=== PATIENT | female | born 1970 | race African-American/Black ===

== ENCOUNTER 2020-01-11 08:21 | Emergency (ER) | payer SELFPAY ==
[2020-01-11 08:59] LABS: Mean Corpuscular HGB CONC 29.3 g/dL (32.0-36.0); Mean Corpuscular Volume 61.5 fL (78.0-98.0); Red Blood Cell (RBC) Count 4.46 mill/uL (4.20-5.40)
[2020-01-11 09:12] LABS: Anion Gap 13 mmol/L (10-20); BUN (Urea Nitrogen) 6 mg/dL (7.0-18.7); Calc. Creatinine Clearance 0 mL/min (70-130); Carbon Dioxide 23 mmol/L (22-29); Chloride 103 mmol/L (98-107); Estimated GFR-MDRD 85; Potassium 3.3 mmol/L (3.5-5.1); Sodium 136 mmol/L (136-145)
[2020-01-11 09:13] LABS: ALT (SGPT) 8 U/L (8-55); AST (SGOT) 17 U/L (5-34); Albumin 3.6 g/dL (3.5-5.0); Alkaline Phosphatase 64 U/L (40-110); Bilirubin, Total 0.5 mg/dL (0.2-1.2); Calcium 8.6 mg/dL (7.8-10.44); Globulin 3.6 g/dL (2.4-3.5); Glucose 103 mg/dL (70-105); Lipase 10 U/L (8-78); Protein, Total 7.2 g/dL (6.0-8.3)
[2020-01-11 09:40] LABS: #Eosinphils 0.1 thou/uL (0.0-0.7); #Monocytes 0.6 thou/uL (0.11-0.59); #Neutrophils 3.8 thou/uL (1.40-6.50); %Basophils 0.6 % (0.0-1.0); %Eosinophils 1.2 % (0.0-10.0); %Lymphocytes 30.8 % (21.0-51.0); %Monocytes 8.8 % (0.0-10.0); %Neutrophils 58.6 % (42.0-75.0); Anisocytosis MODERATE=16-30 cells (100X) (0-5/hpf); Hypochromia SLIGHT = 6-15 cells (100X) (0-5/hpf); Large Platelets SLIGHT; MDiff Complete? YES; Mean Platelet Volume 6.4 fL (7.4-10.4); Ovalocytes SLIGHT = 2-5 cells (100X) (0-1/hpf); Platelet Count 288 thou/uL (130-400); Platelet Morphology Comment Appears Adequate; RBC Distribution Width 21.1 % (11.5-14.5); White Blood Cell (WBC) Count 6.5 thou/uL (4.8-10.8)
[2020-01-11 10:55] LABS: Bacteria/HPF 4+ HPF (None Seen); Bilirubin Negative (Negative); Blood, Urine 2+ (Negative); Clarity Extra Turbid (Clear); Glucose, Urine (Dipstick) Normal (Negative); Ketone, Urine Negative (Negative); Leukocyte 500 Leu/uL (Negative); Nitrite Negative (Negative); Protein, Urine (Dipstick) 300 mg/dL (Neg-Trace); RBC/HPF Greater than 50 HPF (0-3); Specific Gravity, Urine 1.006 (1.002-1.036); Squamous Epithelial 0-3 HPF (0-3); Urobilinogen Normal mg/dL (Less than 2); WBC/HPF Greater than 50 HPF (0-3)
[2020-01-11] MEDS ORDERED: Acetaminophen 500 MG TAB ONE (11:44)
[2020-01-11] MEDS ORDERED: Azithromycin 250 MG TAB ONE (11:44)
[2020-01-11] MEDS ORDERED: cefTRIAXone\\ROCEPHIN 1 GM VIAL ONE (11:44)
[2020-01-11] MEDS ORDERED: Lidocaine 1% PF 5 ML VIAL ONE (11:44)
[2020-01-11 11:49] LABS: BHCG - Serum Negative (NEGATIVE); Pregs Control Background? CLEAR/WHITE (CLR/WHITE); Pregs Control Bar Appear? YES (CONTROL BAR)
[2020-01-12 17:04] LABS: Chlamydia by PCR Not Detected (NotDetected); GC by PCR Not Detected (NotDetected)
== END 2020-01-11 12:08 | disposition home or self-care (01) ==
LOC: ERS 08:21
DX: D64.9 Anemia, unspecified (principal); N12 Tubulo-interstitial nephritis, not specified as acute or chronic; J45.909 Unspecified asthma, uncomplicated; J44.9 Chronic obstructive pulmonary disease, unspecified; F41.9 Anxiety disorder, unspecified; F32.9 Major depressive disorder, single episode, unspecified; F43.10 Post-traumatic stress disorder, unspecified; Z79.899 Other long term (current) drug therapy
CPT/HCPCS: 36415; 80053; 81003; 81015; 83605; 83690; 84703; 85025; 87077; 87086; 87480; 87491; 87510; 87591; 87660; 96374; J0696

== ENCOUNTER 2020-02-05 21:30 | Emergency (ER) | payer SELFPAY ==
--- NOTE | 2020-02-05 22:58 | CT ---
CT HEAD WITHOUT CONTRAST: Date: 02/05/2020 INDICATION: Trauma. FINDINGS: Ventricles have normal size and position. No evidence of intracranial hemorrhage. No edema, mass, inf arct, or other acute process. Sinuses appear clear. No evidence of skull fracture. IMPRESSION: No acute findings. POS: AGW
--- NOTE | 2020-02-05 23:00 | CT ---
CT CERVICAL SPINE: Date: 02/05/2020 INDICATION: Trauma. FINDINGS: Cervical vertebra maintain height and alignment. There are moderate degenerative changes at the C5-6 and C6-7 levels. Loss of disc space noted at these levels with anterior osteophytes and posterior spo ndylosis. There is no evidence of cervical spine fracture. IMPRESSION: 1. No evidence of cervical spine fracture. 2. Degenerative changes at C5-6 and C6-7 as described. POS: MICHELE
[2020-02-05] MEDS ORDERED: Fentanyl 100 MCG/2 ML VIAL ONE (23:25)
== END 2020-02-05 23:54 | disposition home or self-care (01) ==
LOC: ERS 21:30
DX: S09.90XA Unspecified injury of head, initial encounter (principal); S16.1XXA Strain of muscle, fascia and tendon at neck level, initial encounter; J44.9 Chronic obstructive pulmonary disease, unspecified; F41.9 Anxiety disorder, unspecified; F32.9 Major depressive disorder, single episode, unspecified; F43.10 Post-traumatic stress disorder, unspecified; F41.0 Panic disorder [episodic paroxysmal anxiety]; W10.9XXA Fall (on) (from) unspecified stairs and steps, initial encounter
CPT/HCPCS: 70450; 72125; 96372; J3010

== ENCOUNTER 2020-02-22 05:53 | Emergency (ER) | payer SELFPAY ==
[2020-02-22] MEDS ORDERED: diphenhydrAMINE 25 MG CAP ONE (06:05)
[2020-02-22] MEDS ORDERED: predniSONE 20 MG TAB ONE (06:05)
== END 2020-02-22 06:57 | disposition home or self-care (01) ==
LOC: ERS 05:53
DX: T78.40XA Allergy, unspecified, initial encounter (principal); J44.9 Chronic obstructive pulmonary disease, unspecified; F41.9 Anxiety disorder, unspecified; F32.9 Major depressive disorder, single episode, unspecified; F43.10 Post-traumatic stress disorder, unspecified
CPT/HCPCS: 99283; J7512; Q0163

== ENCOUNTER 2020-02-28 12:58 | Emergency (ER) | payer SELFPAY ==
[2020-02-28 15:35] LABS: #Eosinphils 0.1 thou/uL (0.0-0.7); #Lymphocytes 2.4 thou/uL (1.20-3.40); #Monocytes 0.6 thou/uL (0.11-0.59); #Neutrophils 2.1 thou/uL (1.40-6.50); %Basophils 0.2 % (0.0-1.0); %Eosinophils 2.7 % (0.0-10.0); %Lymphocytes 45.9 % (21.0-51.0); %Monocytes 10.8 % (0.0-10.0); %Neutrophils 40.3 % (42.0-75.0); ALT (SGPT) 7 U/L (8-55); AST (SGOT) 16 U/L (5-34); Albumin 3.9 g/dL (3.5-5.0); Alkaline Phosphatase 80 U/L (40-110); Anion Gap 15 mmol/L (10-20); BUN (Urea Nitrogen) 9 mg/dL (7.0-18.7); Bilirubin, Total 0.5 mg/dL (0.2-1.2); Calc. Creatinine Clearance 0 mL/min (70-130); Carbon Dioxide 22 mmol/L (22-29); Chloride 103 mmol/L (98-107); Estimated GFR-MDRD 84; Glucose 87 mg/dL (70-105); Hemoglobin 7.3 g/dL (12.0-16.0); Mean Corpuscular HGB CONC 29.6 g/dL (32.0-36.0); Mean Corpuscular Hemoglobin 17.3 pg (27.0-31.0); Mean Corpuscular Volume 58.5 fL (78.0-98.0); Platelet Count 295 thou/uL (130-400); Potassium 3.6 mmol/L (3.5-5.1); Protein, Total 7.9 g/dL (6.0-8.3); RBC Distribution Width 19.6 % (11.5-14.5); Red Blood Cell (RBC) Count 4.21 mill/uL (4.20-5.40); Sodium 136 mmol/L (136-145); White Blood Cell (WBC) Count 5.3 thou/uL (4.8-10.8)
[2020-02-28] MEDS ORDERED: Acetaminophen 500 MG TAB ONE (15:35)
[2020-02-28] MEDS ORDERED: Furosemide 40 MG TAB ONE (15:35)
[2020-02-28 15:57] LABS: Anisocytosis SLIGHT = 6-15 cells (100X) (0-5/hpf); Elliptocytes SLIGHT = 2-5 cells (100X) (0-1/hpf); Hypochromia MODERATE=16-30 cells (100X) (0-5/hpf); MDiff Complete? YES; Microcytosis MODERATE=15-30 cells (100X) (0-5/hpf); Platelet Morphology Comment Appears Adequate; Polychromasia MODERATE = 3-4 cells (100X) (0-2/hpf); Target Cells MODERATE= 6-15 cells (100X) (0-1/hpf); Tear Drops SLIGHT = 2-5 cells (100X) (0-1/hpf)
[2020-02-28 16:54] LABS: Bilirubin Negative (Negative); Blood, Urine Negative (Negative); Clarity Clear (Clear); Glucose, Urine (Dipstick) Normal (Negative); Ketone, Urine Negative (Negative); Leukocyte Negative Leu/uL (Negative); Nitrite Negative (Negative); Protein, Urine (Dipstick) Negative (Neg-Trace); Specific Gravity, Urine 1.002 (1.002-1.036); Urobilinogen Normal mg/dL (Less than 2)
== END 2020-02-28 16:52 | disposition home or self-care (01) ==
LOC: ERS 12:58
DX: R60.0 Localized edema (principal); G89.29 Other chronic pain; M79.605 Pain in left leg; M79.604 Pain in right leg; J44.9 Chronic obstructive pulmonary disease, unspecified; G43.909 Migraine, unspecified, not intractable, without status migrainosus; F32.9 Major depressive disorder, single episode, unspecified; F41.0 Panic disorder [episodic paroxysmal anxiety]; Z79.899 Other long term (current) drug therapy
CPT/HCPCS: 36415; 80053; 81003; 83880; 85025; 99284

== ENCOUNTER 2020-04-23 14:18 | Emergency (ER) | payer BC ==
[2020-04-23] MEDS ORDERED: Acetaminophen 500 MG TAB ONE (16:00)
[2020-04-23] MEDS ORDERED: Albuterol 200 PUFF (6.7GM INHALER) ONE (16:11)
--- NOTE | 2020-04-23 17:33 | RAD ---
Portable frontal chest radiograph: 04/23/2020 COMPARISON: None HISTORY: Cough, chest pain, Covid exposure FINDINGS: Lungs are clear. Heart and mediastinal contours appear within normal limits. IMPRESSION: No acute findings.
[2020-04-23 17:34] LABS: Bilirubin Negative (Negative); Blood, Urine Negative (Negative); Clarity Clear (Clear); Glucose, Urine (Dipstick) Normal (Negative); Ketone, Urine Negative (Negative); Leukocyte Negative Leu/uL (Negative); Nitrite Negative (Negative); Protein, Urine (Dipstick) Negative (Neg-Trace); Specific Gravity, Urine 1.008 (1.002-1.036); Urobilinogen Normal mg/dL (Less than 2); pH, Urine 6.5 (5.0-9.0)
[2020-04-23 17:36] LABS: Pregnancy Test - Urine (BHCG) Negative (Negative); Pregu Control Background? CLEAR/WHITE (CLR/WHITE); Pregu Control Bar Appear? YES (CONTROL BAR); Specific Gravity 1.008 (1.002-1.036)
[2020-04-26 20:04] LABS: Chlamydia by PCR Not Detected (NotDetected); GC by PCR Not Detected (NotDetected)
== END 2020-04-23 18:15 | disposition home or self-care (01) ==
LOC: ERS 14:18
DX: J06.9 Acute upper respiratory infection, unspecified (principal); N76.0 Acute vaginitis; B96.89 Other specified bacterial agents as the cause of diseases classified elsewhere; J44.9 Chronic obstructive pulmonary disease, unspecified; G43.909 Migraine, unspecified, not intractable, without status migrainosus; F41.0 Panic disorder [episodic paroxysmal anxiety]; F32.9 Major depressive disorder, single episode, unspecified; Z87.891 Personal history of nicotine dependence; Z79.899 Other long term (current) drug therapy
CPT/HCPCS: 71045; 81003; 81025; 87480; 87491; 87510; 87591; 87660; 93005; 94664

== ENCOUNTER 2020-06-02 08:09 | Emergency (ER) | payer SELFPAY ==
[2020-06-02] MEDS ORDERED: methylPREDNISolone Sod Succ/PF 125 MG/2 ML VIAL ONE (08:17)
[2020-06-02] MEDS ORDERED: Famotidine/PF 20 mg/2ml Vial ONE (08:17)
[2020-06-02] MEDS ORDERED: diphenhydrAMINE 50 MG/ML VIAL ONE (08:23)
== END 2020-06-02 09:38 | disposition home or self-care (01) ==
LOC: ERS 08:09
DX: T49.2X5A Adverse effect of local astringents and local detergents, initial encounter (principal); J44.9 Chronic obstructive pulmonary disease, unspecified; D64.9 Anemia, unspecified; Z87.891 Personal history of nicotine dependence; Z79.899 Other long term (current) drug therapy
CPT/HCPCS: 96374; 96375; J1200; J2930; S0028

== ENCOUNTER 2020-07-29 10:10 | Emergency (ER) | payer SELFPAY ==
[2020-07-29] MEDS ORDERED: Ondansetron ODT 4 MG TAB ONE (13:28)
== END 2020-07-29 13:47 | disposition home or self-care (01) ==
LOC: ERS 10:10
DX: T78.2XXA Anaphylactic shock, unspecified, initial encounter (principal); D64.9 Anemia, unspecified; G43.909 Migraine, unspecified, not intractable, without status migrainosus; J44.9 Chronic obstructive pulmonary disease, unspecified; D25.9 Leiomyoma of uterus, unspecified; E28.2 Polycystic ovarian syndrome; Z79.899 Other long term (current) drug therapy
CPT/HCPCS: 99283; Q0162

== ENCOUNTER 2020-08-05 07:26 | Emergency (ER) | payer SELFPAY ==
[2020-08-05] MEDS ORDERED: predniSONE 20 MG TAB ONE (07:49)
== END 2020-08-05 11:42 | disposition home or self-care (01) ==
LOC: ERS 07:26
DX: T78.40XA Allergy, unspecified, initial encounter (principal); R22.0 Localized swelling, mass and lump, head; J44.9 Chronic obstructive pulmonary disease, unspecified
CPT/HCPCS: 99283; J7512

== ENCOUNTER 2020-08-17 06:32 | Emergency (ER) | payer SELFPAY ==
[2020-08-17] MEDS ORDERED: Boostrix 0.5 ML (Tdap) VIAL ONE (07:48)
[2020-08-17] MEDS ORDERED: Acetaminophen 500 MG TAB ONE (07:48)
== END 2020-08-17 08:15 | disposition home or self-care (01) ==
LOC: ERS 06:32
DX: S60.450A Superficial foreign body of right index finger, initial encounter (principal); S60.452A Superficial foreign body of right middle finger, initial encounter; K21.9 Gastro-esophageal reflux disease without esophagitis; J44.9 Chronic obstructive pulmonary disease, unspecified; W25.XXXA Contact with sharp glass, initial encounter
CPT/HCPCS: 90471; 90715

== ENCOUNTER 2020-09-22 15:06 | Emergency (ER) | payer OTHER, SELFPAY ==
[2020-09-22 15:50] LABS: #Lymphocytes 1.8 thou/uL (1.20-3.40); #Monocytes 0.4 thou/uL (0.11-0.59); #Neutrophils 2.6 thou/uL (1.40-6.50); %Basophils 0.3 % (0.0-1.0); %Lymphocytes 37.2 % (21.0-51.0); %Monocytes 7.3 % (0.0-10.0); %Neutrophils 54.2 % (42.0-75.0); Hemoglobin 5.3 g/dL (12.0-16.0); Mean Corpuscular Hemoglobin 16.5 pg (27.0-31.0); Mean Corpuscular Volume 56.9 fL (78.0-98.0); Mean Platelet Volume 6.1 fL (7.4-10.4); Platelet Count 251 thou/uL (130-400); RBC Distribution Width 19.5 % (11.5-14.5); Red Blood Cell (RBC) Count 3.24 mill/uL (4.20-5.40); White Blood Cell (WBC) Count 4.9 thou/uL (4.8-10.8)
[2020-09-22 16:16] LABS: ALT (SGPT) 13 U/L (8-55); AST (SGOT) 21 U/L (5-34); Albumin 3.6 g/dL (3.5-5.0); Alkaline Phosphatase 64 U/L (40-110); Anion Gap 6 mmol/L (10-20); BUN (Urea Nitrogen) 6 mg/dL (7.0-18.7); Bilirubin, Total 0.7 mg/dL (0.2-1.2); Calc. Creatinine Clearance 0 mL/min (70-130); Carbon Dioxide 27 mmol/L (22-29); Chloride 109 mmol/L (98-107); Globulin 3.5 g/dL (2.4-3.5); Glucose 88 mg/dL (70-105); Potassium 3.7 mmol/L (3.5-5.1); Protein, Total 7.1 g/dL (6.0-8.3); Sodium 138 mmol/L (136-145)
[2020-09-22] MEDS ORDERED: Albuterol 200 PUFF (6.7GM INHALER) ONE (16:16)
[2020-09-22 16:20] LABS: Anisocytosis SLIGHT = 6-15 cells (100X) (0-5/hpf); Hypochromia MODERATE=16-30 cells (100X) (0-5/hpf); MDiff Complete? YES; Microcytosis MODERATE=15-30 cells (100X) (0-5/hpf); Ovalocytes SLIGHT = 2-5 cells (100X) (0-1/hpf); Platelet Morphology Comment Appears Adequate; Polychromasia MODERATE = 3-4 cells (100X) (0-2/hpf); Reflex for Review?? YES; Target Cells SLIGHT = 2-5 cells (100X) (0-1/hpf)
[2020-09-22 16:27] LABS: BHCG - Serum Negative (NEGATIVE); Pregs Control Background? CLEAR/WHITE (CLR/WHITE); Pregs Control Bar Appear? YES (CONTROL BAR)
[2020-09-22 16:32] LABS: Prothrombin Time 13.4 sec (12.0-14.7)
[2020-09-22 16:33] LABS: PTT 24.5 sec (22.9-36.1)
[2020-09-22 16:46] LABS: SARS-CoV-2 NAA Rapid Test Not Detected (NotDetected)
[2020-09-22 17:00] LABS: Troponin I Less than 0.010 ng/mL (< 0.028)
[2020-09-22] MEDS ORDERED: Tranexamic Acid 1,000 MG/10 ML VIAL ONE (18:34)
[2020-09-22] MEDS ORDERED: Tranexamic Acid 1,000 MG in Sodium Chloride 0.9% 250 ML 250 ML IVPB SCH (18:45)
== END 2020-09-22 21:07 | disposition short-term general hospital (02) ==
LOC: ERS 15:06
DX: D64.9 Anemia, unspecified (principal); N93.9 Abnormal uterine and vaginal bleeding, unspecified; R05 Cough; K21.9 Gastro-esophageal reflux disease without esophagitis; J44.9 Chronic obstructive pulmonary disease, unspecified
CPT/HCPCS: 0240U; 36415; 36430; 71045; 76856; 80053; 84484; 84703; 85025; 85060; 85610; 85730; 86850; 86900; 86901; 93005; 93976; 96365; J7050; P9016

== ENCOUNTER 2020-10-11 06:59 | Emergency (ER) | payer OTHER, SELFPAY ==
[2020-10-11 07:41] LABS: Bacteria/HPF 4+ HPF (None Seen); Bilirubin Negative (Negative); Blood, Urine 2+ (Negative); Clarity Extra Turbid (Clear); Glucose, Urine (Dipstick) Normal (Negative); Ketone, Urine Negative (Negative); Leukocyte 500 Leu/uL (Negative); Nitrite 1+ (Negative); Protein, Urine (Dipstick) 30 mg/dL (Neg-Trace); RBC/HPF Greater than 50 HPF (0-3); Specific Gravity, Urine 1.005 (1.002-1.036); Squamous Epithelial 0-3 HPF (0-3); Urobilinogen Normal mg/dL (Less than 2); WBC/HPF Greater than 50 HPF (0-3); pH, Urine 5.5 (5.0-9.0)
[2020-10-11] MEDS ORDERED: Acetaminophen 500 MG TAB ONE (08:09)
== END 2020-10-11 08:13 | disposition home or self-care (01) ==
LOC: ERS 06:59
DX: N10 Acute pyelonephritis (principal); N30.01 Acute cystitis with hematuria; K21.9 Gastro-esophageal reflux disease without esophagitis; J44.9 Chronic obstructive pulmonary disease, unspecified; Z79.899 Other long term (current) drug therapy
CPT/HCPCS: 81003; 81015; 87077; 87086; 87186; 99283

== ENCOUNTER 2021-01-11 18:53 | Emergency (ER) | payer SELFPAY | END 2021-01-11 20:45 | disposition home or self-care (01) | LOC: ERS 18:53 | DX: T78.40XA Allergy, unspecified, initial encounter (principal); K21.9 Gastro-esophageal reflux disease without esophagitis; J44.9 Chronic obstructive pulmonary disease, unspecified | CPT/HCPCS: 99283 ==

== ENCOUNTER 2021-03-15 16:40 | Emergency (ER) | payer SELFPAY ==
[2021-03-15] MEDS ORDERED: Dexamethasone 4 mg/ml Vial ONE ×2 (17:23)
[2021-03-15] MEDS ORDERED: Dexamethasone 4 MG TAB ONE ×2 (17:23→17:24)
== END 2021-03-15 17:45 | disposition home or self-care (01) ==
LOC: ERS 16:40
DX: K14.8 Other diseases of tongue (principal); T78.1XXA Other adverse food reactions, not elsewhere classified, initial encounter; K21.9 Gastro-esophageal reflux disease without esophagitis; J44.9 Chronic obstructive pulmonary disease, unspecified; Z79.899 Other long term (current) drug therapy
CPT/HCPCS: 99283; J1100; J8540

== ENCOUNTER 2021-03-18 14:13 | Emergency (ER) | payer SELFPAY ==
[2021-03-18 15:32] LABS: #Eosinphils 0.1 thou/uL (0.0-0.7); #Lymphocytes 1.6 thou/uL (1.20-3.40); #Monocytes 0.4 thou/uL (0.11-0.59); #Neutrophils 1.5 thou/uL (1.40-6.50); %Basophils 0.2 % (0.0-1.0); %Eosinophils 2.2 % (0.0-10.0); %Lymphocytes 45.9 % (21.0-51.0); %Monocytes 9.7 % (0.0-10.0); Hemoglobin 6.4 g/dL (12.0-16.0); Mean Corpuscular HGB CONC 29.2 g/dL (32.0-36.0); Mean Corpuscular Hemoglobin 17.3 pg (27.0-31.0); Mean Corpuscular Volume 59.2 fL (78.0-98.0); Mean Platelet Volume 6.1 fL (7.4-10.4); Platelet Count 372 thou/uL (130-400); RBC Distribution Width 20.4 % (11.5-14.5); Red Blood Cell (RBC) Count 3.71 mill/uL (4.20-5.40); White Blood Cell (WBC) Count 3.6 thou/uL (4.8-10.8)
[2021-03-18] MEDS ORDERED: predniSONE 20 MG TAB ONE (15:34)
[2021-03-18] MEDS ORDERED: Famotidine 20 MG TAB ONE (15:34)
[2021-03-18 15:52] LABS: Anisocytosis MODERATE=16-30 cells (100X) (0-5/hpf); Hypochromia MODERATE=16-30 cells (100X) (0-5/hpf); MDiff Complete? YES; Microcytosis MODERATE=15-30 cells (100X) (0-5/hpf); Ovalocytes SLIGHT = 2-5 cells (100X) (0-1/hpf); Platelet Morphology Comment Appears Adequate; Poikilocytosis SLIGHT = 6-15 cells (100X) (0-5/hpf); Polychromasia MODERATE = 3-4 cells (100X) (0-2/hpf); Reflex for Review?? NO; Schistocytes SLIGHT = 2-5 cells (100X) (0-1/hpf); Target Cells SLIGHT = 2-5 cells (100X) (0-1/hpf); Tear Drops SLIGHT = 2-5 cells (100X) (0-1/hpf)
[2021-03-18 17:23] LABS: ALT (SGPT) 8 U/L (8-55); AST (SGOT) 13 U/L (5-34); Albumin 3.5 g/dL (3.5-5.0); Alkaline Phosphatase 74 U/L (40-110); Anion Gap 11 mmol/L (10-20); BUN (Urea Nitrogen) 6 mg/dL (7.0-18.7); Bilirubin, Total 0.4 mg/dL (0.2-1.2); Calc. Creatinine Clearance 0 mL/min (70-130); Calcium 9.2 mg/dL (7.8-10.44); Carbon Dioxide 25 mmol/L (22-29); Chloride 108 mmol/L (98-107); Globulin 3.9 g/dL (2.4-3.5); Glucose 95 mg/dL (70-105); Iron 8 ug/dL (50-170); Iron Binding Capacity, Total 526 mcg/dL (265-497); Potassium 3.7 mmol/L (3.5-5.1); Protein, Total 7.4 g/dL (6.0-8.3); Sodium 140 mmol/L (136-145)
== END 2021-03-18 21:53 | disposition home or self-care (01) ==
LOC: ERS 14:13
DX: R06.02 Shortness of breath (principal); T45.0X5A Adverse effect of antiallergic and antiemetic drugs, initial encounter; D64.9 Anemia, unspecified; J44.9 Chronic obstructive pulmonary disease, unspecified
CPT/HCPCS: 36415; 36430; 80053; 82728; 83540; 83550; 85025; 86850; 86900; 86901; 99285; J7512; P9016

== ENCOUNTER 2021-05-18 15:39 | Emergency (ER) | payer SELFPAY ==
[2021-05-18 16:22] LABS: #Eosinphils 0.1 thou/uL (0.0-0.7); #Lymphocytes 1.8 thou/uL (1.20-3.40); #Monocytes 0.2 thou/uL (0.11-0.59); #Neutrophils 2.8 thou/uL (1.40-6.50); %Basophils 0.7 % (0.0-1.0); %Eosinophils 2.4 % (0.0-10.0); %Lymphocytes 35.7 % (21.0-51.0); %Monocytes 4.6 % (0.0-10.0); %Neutrophils 56.6 % (42.0-75.0); Hemoglobin 7.3 g/dL (12.0-16.0); Mean Corpuscular HGB CONC 29.3 g/dL (32.0-36.0); Mean Corpuscular Hemoglobin 17.4 pg (27.0-31.0); Mean Corpuscular Volume 59.2 fL (78.0-98.0); Mean Platelet Volume 5.6 fL (7.4-10.4); Platelet Count 504 thou/uL (130-400); RBC Distribution Width 20.2 % (11.5-14.5); Red Blood Cell (RBC) Count 4.21 mill/uL (4.20-5.40)
[2021-05-18 16:45] LABS: Acetaminophen Less than 6.0 mcg/mL (10.0-30.0); Alcohol Less than 10 mg/dL (Less than 10); CK (CPK) 54 U/L (29-168); Salicylate Less than 8.0 mg/dL (15.0-30.0)
[2021-05-18 16:49] LABS: ALT (SGPT) 11 U/L (8-55); AST (SGOT) 22 U/L (5-34); Alkaline Phosphatase 83 U/L (40-110); Anion Gap 11 mmol/L (10-20); BUN (Urea Nitrogen) 10 mg/dL (7.0-18.7); Bilirubin, Total 0.3 mg/dL (0.2-1.2); Calc. Creatinine Clearance 0 mL/min (70-130); Calcium 9.3 mg/dL (7.8-10.44); Carbon Dioxide 25 mmol/L (22-29); Chloride 105 mmol/L (98-107); Globulin 4.1 g/dL (2.4-3.5); Glucose 120 mg/dL (70-105); Potassium 3.4 mmol/L (3.5-5.1); Protein, Total 8.1 g/dL (6.0-8.3); Sodium 138 mmol/L (136-145)
[2021-05-18 16:56] LABS: Reflex for Review?? NO
[2021-05-18 16:57] LABS: Anisocytosis SLIGHT = 6-15 cells (100X) (0-5/hpf); Blister Cells SLIGHT = 2-5 cells (100X) (0-1/hpf); Elliptocytes SLIGHT = 2-5 cells (100X) (0-1/hpf); Hypochromia MODERATE=16-30 cells (100X) (0-5/hpf); Large Platelets SLIGHT; MDiff Complete? YES; Microcytosis MODERATE=15-30 cells (100X) (0-5/hpf); Ovalocytes SLIGHT = 2-5 cells (100X) (0-1/hpf); Platelet Morphology Comment Appears Increased; Poikilocytosis SLIGHT = 6-15 cells (100X) (0-5/hpf); Polychromasia MODERATE = 3-4 cells (100X) (0-2/hpf); Target Cells SLIGHT = 2-5 cells (100X) (0-1/hpf)
[2021-05-18 17:01] LABS: BHCG - Serum Negative (NEGATIVE); Pregs Control Background? CLEAR/WHITE (CLR/WHITE); Pregs Control Bar Appear? YES (CONTROL BAR)
[2021-05-18 17:30] LABS: Pregnancy Test - Urine (BHCG) Negative (Negative); Pregu Control Background? CLEAR/WHITE (CLR/WHITE); Pregu Control Bar Appear? YES (CONTROL BAR); Specific Gravity 1.007 (1.002-1.036)
[2021-05-18 17:31] LABS: Thyroid Stimulating Hormone 4.1017 uIU/mL (0.35-4.94)
[2021-05-18 17:31] LABS: Bacteria/HPF 4+ HPF (None Seen); Bilirubin Negative (Negative); Blood, Urine 3+ (Negative); Clarity Turbid (Clear); Glucose, Urine (Dipstick) Normal (Negative); Ketone, Urine Negative (Negative); Leukocyte 500 Leu/uL (Negative); Nitrite 2+ (Negative); Protein, Urine (Dipstick) 30 mg/dL (Neg-Trace); RBC/HPF Greater than 50 HPF (0-3); Specific Gravity, Urine 1.007 (1.002-1.036); Squamous Epithelial 0-3 HPF (0-3); Urobilinogen Normal mg/dL (Less than 2); WBC/HPF Greater than 50 HPF (0-3); pH, Urine 5.5 (5.0-9.0)
[2021-05-18 17:36] LABS: Amphetamine Not Detected (NotDetected); Barbiturates Screen Not Detected (NotDetected); Benzodiazepine Screen Not Detected (NotDetected); Cocaine Metabolite Screen Not Detected (NotDetected); Methadone Not Detected (NotDetected); Methamphetamine Not Detected (NotDetected); Opiate Screen Not Detected (NotDetected); Oxycodone Screen Not Detected (NotDetected); Phencyclidine (PCP) Not Detected (NotDetected); THC/Cannabinoid Screen Not Detected (NotDetected); Tricyclic Screen Not Detected (NotDetected)
[2021-05-18] MEDS ORDERED: Nitrofurantoin Monohyd/M-Cryst 100 MG CAP PO SCH (20:15)
[2021-05-19] MEDS ORDERED: Nitrofurantoin Monohyd/M-Cryst 100 MG CAP PO SCH (09:00)
== END 2021-05-19 12:30 | disposition home or self-care (01) ==
LOC: ERS 15:39
DX: R45.851 Suicidal ideations (principal); F43.20 Adjustment disorder, unspecified; N39.0 Urinary tract infection, site not specified; J44.9 Chronic obstructive pulmonary disease, unspecified; K21.9 Gastro-esophageal reflux disease without esophagitis; Z79.899 Other long term (current) drug therapy
CPT/HCPCS: 36415; 80053; 80306; 80307; 81003; 81015; 81025; 82550; 84443; 84703; 85025; 87077; 87086; 87186; 93005

== ENCOUNTER 2021-08-07 05:43 | Emergency (ER) | payer OTHER, SELFPAY | END 2021-08-07 06:28 | disposition home or self-care (01) | LOC: ERS 05:43 | DX: K02.9 Dental caries, unspecified (principal); J44.9 Chronic obstructive pulmonary disease, unspecified; K21.9 Gastro-esophageal reflux disease without esophagitis | CPT/HCPCS: 99282 ==

== ENCOUNTER 2021-08-18 15:11 | Observation (INO) | payer OTHER, SELFPAY ==
[2021-08-18] MEDS ORDERED: Ketorolac Tromethamine 30 MG/ML VIAL ONE (15:53)
[2021-08-18] MEDS ORDERED: Furosemide 40 MG/4 ML VIAL ONE (15:53)
[2021-08-18 16:40] LABS: Hemoglobin 4.9 g/dL (12.0-16.0); Mean Corpuscular HGB CONC 28.5 g/dL (32.0-36.0); Mean Corpuscular Volume 56.2 fL (78.0-98.0); Mean Platelet Volume 6.9 fL (7.4-10.4); Platelet Count 258 thou/uL (130-400); RBC Distribution Width 20.7 % (11.5-14.5); Red Blood Cell (RBC) Count 3.05 mill/uL (4.20-5.40); White Blood Cell (WBC) Count 3.5 thou/uL (4.8-10.8)
[2021-08-18 16:42] LABS: #Eosinphils 0.1 thou/uL (0.0-0.7); #Lymphocytes 1.3 thou/uL (1.20-3.40); #Monocytes 0.3 thou/uL (0.11-0.59); #Neutrophils 1.8 thou/uL (1.40-6.50); %Basophils 0.8 % (0.0-1.0); %Eosinophils 1.9 % (0.0-10.0); %Lymphocytes 36.3 % (21.0-51.0); %Monocytes 9.2 % (0.0-10.0); %Neutrophils 51.8 % (42.0-75.0)
[2021-08-18 16:47] LABS: ALT (SGPT) 8 U/L (8-55); AST (SGOT) 18 U/L (5-34); Albumin 3.7 g/dL (3.5-5.0); Alkaline Phosphatase 62 U/L (40-110); Anion Gap 11 mmol/L (10-20); BUN (Urea Nitrogen) 7 mg/dL (9.8-20.1); Bilirubin, Total 0.6 mg/dL (0.2-1.2); Calc. Creatinine Clearance 0 mL/min (70-130); Calcium 8.8 mg/dL (7.8-10.44); Carbon Dioxide 24 mmol/L (22-29); Chloride 108 mmol/L (98-107); Globulin 3.4 g/dL (2.4-3.5); Glucose 84 mg/dL (70-105); Protein, Total 7.1 g/dL (6.0-8.3); Sodium 139 mmol/L (136-145)
[2021-08-18 17:47] LABS: Iron 10 ug/dL (50-170); Iron Binding Capacity, Total 610 mcg/dL (265-497)
[2021-08-18 17:51] LABS: PTT 25.7 sec (22.9-36.1); Prothrombin Time 13.7 sec (12.0-14.7)
[2021-08-18] MEDS ORDERED: Acetaminophen 325 MG TAB PO PRN (18:22)
[2021-08-18] MEDS ORDERED: HYDROcodone/Acetaminophen 5/325 mg Tablet PO PRN (18:22)
[2021-08-18] MEDS ORDERED: Calcium Carbonate 500 MG ChewTAB PO PRN (18:22)
[2021-08-18] MEDS ORDERED: Senokot S 8.6-50 MG TAB PO PRN (18:22)
[2021-08-18] MEDS ORDERED: IRON SUCROSE COMPLEX 100 MG/5 ML SLOW IVP SCH (18:30)
[2021-08-18] MEDS ORDERED: Iron, Sodium Ferric Gluconate 125 MG in Sodium Chloride 0.9% 100 ML IVPB SCH (21:00)
[2021-08-19 00:33] VITALS: BMI 30.8
[2021-08-19 07:31] LABS: #Eosinphils 0.1 thou/uL (0.0-0.7); #Lymphocytes 1.3 thou/uL (1.20-3.40); #Monocytes 0.4 thou/uL (0.11-0.59); #Neutrophils 1.6 thou/uL (1.40-6.50); %Basophils 0.7 % (0.0-1.0); %Eosinophils 1.8 % (0.0-10.0); %Lymphocytes 38.7 % (21.0-51.0); %Monocytes 10.3 % (0.0-10.0); %Neutrophils 48.4 % (42.0-75.0); Hemoglobin 6.9 g/dL (12.0-16.0); Mean Corpuscular Hemoglobin 20.1 pg (27.0-31.0); Mean Platelet Volume 5.5 fL (7.4-10.4); Platelet Count 191 thou/uL (130-400); Red Blood Cell (RBC) Count 3.41 mill/uL (4.20-5.40); White Blood Cell (WBC) Count 3.4 thou/uL (4.8-10.8)
[2021-08-19 07:49] LABS: Anion Gap 10 mmol/L (10-20); BUN (Urea Nitrogen) 10 mg/dL (9.8-20.1); Calc. Creatinine Clearance 102 mL/min (70-130); Calcium 8.4 mg/dL (7.8-10.44); Carbon Dioxide 24 mmol/L (22-29); Chloride 107 mmol/L (98-107); Glucose 91 mg/dL (70-105); Potassium 3.8 mmol/L (3.5-5.1); Sodium 137 mmol/L (136-145)
[2021-08-19 08:03] LABS: Hypochromia MODERATE=16-30 cells (100X) (0-5/hpf); MDiff Complete? YES; Microcytosis MODERATE=15-30 cells (100X) (0-5/hpf); Ovalocytes SLIGHT = 2-5 cells (100X) (0-1/hpf); Platelet Morphology Comment Appears Adequate; Polychromasia MODERATE = 3-4 cells (100X) (0-2/hpf); Tear Drops SLIGHT = 2-5 cells (100X) (0-1/hpf)
[2021-08-19] MEDS: Furosemide 40 MG TAB PO SCH (08:48)
[2021-08-19] MEDS: Ferrous Gluconate 324 MG TAB PO SCH (08:48)
[2021-08-19] MEDS: Furosemide 40 MG/4 ML VIAL SLOW IVP SCH (09:49)
[2021-08-19 12:22] LABS: SARS-CoV-2 PCR by NAA Not Detected (NotDetected)
[2021-08-19] MEDS ORDERED: Potassium Chloride 20 MEQ TAB PO SCH (17:15)
[2021-08-19] MEDS: Loratadine 10 MG TAB PO PRN (23:08)
[2021-08-20 06:29] LABS: #Eosinphils 0.1 thou/uL (0.0-0.7); #Lymphocytes 1.5 thou/uL (1.20-3.40); #Monocytes 0.4 thou/uL (0.11-0.59); #Neutrophils 1.4 thou/uL (1.40-6.50); %Basophils 0.5 % (0.0-1.0); %Eosinophils 2.8 % (0.0-10.0); %Lymphocytes 44.6 % (21.0-51.0); %Monocytes 11.5 % (0.0-10.0); %Neutrophils 40.7 % (42.0-75.0); Hemoglobin 8.2 g/dL (12.0-16.0); Mean Corpuscular Hemoglobin 20.5 pg (27.0-31.0); Mean Corpuscular Volume 68.3 fL (78.0-98.0); Mean Platelet Volume 6.4 fL (7.4-10.4); Platelet Count 219 thou/uL (130-400); RBC Distribution Width 28.6 % (11.5-14.5); White Blood Cell (WBC) Count 3.4 thou/uL (4.8-10.8)
[2021-08-20 06:49] LABS: Anion Gap 10 mmol/L (10-20); BUN (Urea Nitrogen) 8 mg/dL (9.8-20.1); Calc. Creatinine Clearance 123 mL/min (70-130); Calcium 8.9 mg/dL (7.8-10.44); Carbon Dioxide 24 mmol/L (22-29); Chloride 110 mmol/L (98-107); Glucose 86 mg/dL (70-105); Potassium 3.6 mmol/L (3.5-5.1); Sodium 140 mmol/L (136-145)
[2021-08-20 08:13] VITALS: BP 107/69; TEMP 98
[2021-08-20] MEDS: Furosemide 40 MG/4 ML VIAL SLOW IVP SCH (08:50)
[2021-08-20] MEDS: Furosemide 40 MG TAB PO SCH (09:00)
[2021-08-20] MEDS: Ferrous Gluconate 324 MG TAB PO SCH (09:00)
[2021-08-20] MEDS: Loratadine 10 MG TAB PO PRN (09:01)
== END 2021-08-20 15:52 | disposition home or self-care (01) ==
LOC: ERS 15:11 → T4-B 18:05
PROVIDERS: ADMIT Hospitalist; ATTEND Hospitalist
DX: D50.9 Iron deficiency anemia, unspecified (principal); M79.89 Other specified soft tissue disorders; N93.9 Abnormal uterine and vaginal bleeding, unspecified; D25.9 Leiomyoma of uterus, unspecified; F41.9 Anxiety disorder, unspecified; F31.9 Bipolar disorder, unspecified; E87.6 Hypokalemia; G62.9 Polyneuropathy, unspecified; K21.9 Gastro-esophageal reflux disease without esophagitis; F12.10 Cannabis abuse, uncomplicated; I08.8 Other rheumatic multiple valve diseases; Z79.899 Other long term (current) drug therapy; Z88.1 Allergy status to other antibiotic agents; Z88.5 Allergy status to narcotic agent; Z88.6 Allergy status to analgesic agent; Z88.8 Allergy status to other drugs, medicaments and biological substances; Z91.018 Allergy to other foods; Z91.041 Radiographic dye allergy status; Z91.048 Other nonmedicinal substance allergy status; Z59.02 Unsheltered homelessness; Z20.822 Contact with and (suspected) exposure to COVID-19
CPT/HCPCS: 36415; 36430; 80048; 80053; 82728; 83540; 83550; 83880; 84443; 85025; 85610; 85730; 86850; 86900; 86901; 93306; 93970; 96374; 96375; G0378; J1885; J1940; J2916; J3490; P9016; U0003; U0005

== ENCOUNTER 2021-10-07 09:42 | Outpatient (CLI) | payer OTHER | END 2021-10-07 09:43 | disposition home or self-care (01) | LOC: BICRAD 09:42 | PROVIDERS: ATTEND Internal Medicine | DX: Z02.71 Encounter for disability determination (principal); M47.814 Spondylosis without myelopathy or radiculopathy, thoracic region; M47.816 Spondylosis without myelopathy or radiculopathy, lumbar region | CPT/HCPCS: 72080 ==

== ENCOUNTER 2021-12-13 18:21 | Emergency (ER) | payer SELFPAY ==
[2021-12-13] MEDS ORDERED: Dexamethasone 4 MG TAB ONE (19:12)
[2021-12-13] MEDS ORDERED: Dexamethasone 10 MG/ML VIAL ONE (19:15)
== END 2021-12-13 19:26 | disposition home or self-care (01) ==
LOC: ERS 18:21
DX: F41.9 Anxiety disorder, unspecified (principal); J44.9 Chronic obstructive pulmonary disease, unspecified; K21.9 Gastro-esophageal reflux disease without esophagitis; D64.9 Anemia, unspecified; Z79.899 Other long term (current) drug therapy
CPT/HCPCS: 96374; J1100; J8540

== ENCOUNTER 2022-01-01 13:41 | Emergency (ER) | payer SELFPAY ==
[2022-01-01] MEDS ORDERED: Famotidine/PF 20 mg/2ml Vial ONE ×2 (13:45→14:01)
[2022-01-01] MEDS ORDERED: methylPREDNISolone Sod Succ/PF 125 MG/2 ML VIAL ONE (13:45)
== END 2022-01-01 16:09 | disposition home or self-care (01) ==
LOC: ERS 13:41
DX: T78.1XXA Other adverse food reactions, not elsewhere classified, initial encounter (principal); J44.9 Chronic obstructive pulmonary disease, unspecified
CPT/HCPCS: 93005; 96374; 96375; J2930; S0028

== ENCOUNTER 2022-05-04 19:24 | Emergency (ER) | payer SELFPAY ==
[2022-05-04] MEDS ORDERED: Acetaminophen 500 MG TAB ONE (19:49)
[2022-05-04] MEDS ORDERED: Ibuprofen 800 MG TAB ONE (19:49)
[2022-05-04 20:57] LABS: SARS-CoV-2 NAA Rapid Test DETECTED (NotDetected)
== END 2022-05-04 21:34 | disposition home or self-care (01) ==
LOC: ERS 19:24
DX: U07.1 COVID-19 (principal); J44.9 Chronic obstructive pulmonary disease, unspecified; K21.9 Gastro-esophageal reflux disease without esophagitis
CPT/HCPCS: 99283

== ENCOUNTER 2022-08-12 10:26 | Emergency (ER) | payer SELFPAY ==
[2022-08-12] MEDS ORDERED: LORazepam 2 MG/ML SYR.(CARPUJECT) ONE (10:59)
[2022-08-12 11:28] LABS: #Eosinphils 0.1 thou/uL (0.0-0.7); #Lymphocytes 1.6 thou/uL (1.20-3.40); #Monocytes 0.5 thou/uL (0.11-0.59); #Neutrophils 3.6 thou/uL (1.40-6.50); %Basophils 0.6 % (0.0-1.0); %Eosinophils 1.1 % (0.0-10.0); %Lymphocytes 27.2 % (21.0-51.0); %Monocytes 8.4 % (0.0-10.0); %Neutrophils 62.7 % (42.0-75.0); Hemoglobin 6.9 g/dL (12.0-16.0); Mean Corpuscular HGB CONC 29.9 g/dL (32.0-36.0); Mean Corpuscular Hemoglobin 18.9 pg (27.0-31.0); Mean Corpuscular Volume 63.1 fl (78.0-98.0); Mean Platelet Volume 6.1 fL (7.4-10.4); Platelet Count 394 10x3/uL (130-400); RBC Distribution Width 20.5 % (11.5-14.5); Red Blood Cell (RBC) Count 3.64 mill/uL (4.20-5.40); White Blood Cell (WBC) Count 5.8 10x3/uL (4.8-10.8)
[2022-08-12 11:35] LABS: Acetaminophen Less than 10.0 mcg/mL (10.0-30.0); Alcohol Less than 10 mg/dL (Less than 10); Salicylate Less than 8.0 mg/dL (15.0-30.0)
[2022-08-12 11:36] LABS: ALT (SGPT) 18 U/L (8-55); AST (SGOT) 24 U/L (5-34); Albumin 3.8 g/dL (3.5-5.0); Alkaline Phosphatase 79 U/L (40-110); Anion Gap 14 mmol/L (10-20); BUN (Urea Nitrogen) 9 mg/dL (9.8-20.1); Bilirubin, Total 0.6 mg/dL (0.2-1.2); Calc. Creatinine Clearance 0 mL/min (70-130); Calcium 9.3 mg/dL (7.8-10.44); Carbon Dioxide 21 mmol/L (22-29); Chloride 101 mmol/L (98-107); Estimated GFR 69; Globulin 3.5 g/dL (2.4-3.5); Glucose 76 mg/dL (70-105); Potassium 3.6 mmol/L (3.5-5.1); Protein, Total 7.3 g/dL (6.0-8.3); Sodium 132 mmol/L (136-145)
[2022-08-12 11:47] LABS: Reflex for Review?? NO
[2022-08-12 11:48] LABS: Anisocytosis SLIGHT = 6-15 cells (100X) (0-5/hpf); Hypochromia SLIGHT = 6-15 cells (100X) (0-5/hpf); Large Platelets SLIGHT = 1-5 cells (None Seen); MDiff Complete? YES; Microcytosis MODERATE=15-30 cells (100X) (0-5/hpf); Ovalocytes SLIGHT = 2-5 cells (100X) (0-1/hpf); Platelet Morphology Comment Appears Adequate; Polychromasia SLIGHT = 2-3 cells (100X) (0-2/hpf); Tear Drops SLIGHT = 2-5 cells (100X) (0-1/hpf)
[2022-08-12 15:07] LABS: BHCG - Serum Negative (NEGATIVE); Pregs Control Background? CLEAR/WHITE (CLR/WHITE); Pregs Control Bar Appear? YES (CONTROL BAR)
== END 2022-08-12 17:58 | disposition short-term general hospital (02) ==
LOC: ERS 10:26
DX: D64.9 Anemia, unspecified (principal); T76.21XA Adult sexual abuse, suspected, initial encounter; J44.9 Chronic obstructive pulmonary disease, unspecified; K21.9 Gastro-esophageal reflux disease without esophagitis; F17.210 Nicotine dependence, cigarettes, uncomplicated
CPT/HCPCS: 36430; 74176; 80053; 80307; 84443; 84703; 85025; 86850; 86900; 86901; 93005; 96374; J2060; P9016

== ENCOUNTER 2022-10-22 17:01 | Emergency (ER) | payer OTHER | END 2022-10-22 18:45 | disposition home or self-care (01) | LOC: ERS 17:01 | DX: S09.90XA Unspecified injury of head, initial encounter (principal); S00.211A Abrasion of right eyelid and periocular area, initial encounter; J44.9 Chronic obstructive pulmonary disease, unspecified; K21.9 Gastro-esophageal reflux disease without esophagitis; F17.290 Nicotine dependence, other tobacco product, uncomplicated; W07.XXXA Fall from chair, initial encounter | CPT/HCPCS: 70450; 72125; 93005 ==

== ENCOUNTER 2022-12-11 22:48 | Emergency (ER) | payer OTHER ==
[2022-12-11] MEDS ORDERED: Acetaminophen 500 MG TAB ONE (23:26)
== END 2022-12-12 00:18 | disposition home or self-care (01) ==
LOC: ERS 22:48
DX: S20.219A Contusion of unspecified front wall of thorax, initial encounter (principal); J44.9 Chronic obstructive pulmonary disease, unspecified; K21.9 Gastro-esophageal reflux disease without esophagitis; F17.210 Nicotine dependence, cigarettes, uncomplicated; X50.9XXA Other and unspecified overexertion or strenuous movements or postures, initial encounter
CPT/HCPCS: 71045

== ENCOUNTER 2023-02-02 17:59 | Emergency (ER) | payer OTHER ==
[2023-02-02] MEDS ORDERED: Acetaminophen 500 MG TAB ONE (18:44)
[2023-02-02] MEDS ORDERED: Orphenadrine Citrate 100 MG ER.TAB ONE (18:57)
[2023-02-02] MEDS ORDERED: Ketorolac Tromethamine 30 MG/ML VIAL ONE (19:20)
== END 2023-02-02 20:27 | disposition home or self-care (01) ==
LOC: ERS 17:59
DX: M54.9 Dorsalgia, unspecified (principal); G89.29 Other chronic pain; J44.9 Chronic obstructive pulmonary disease, unspecified; K21.9 Gastro-esophageal reflux disease without esophagitis; F17.290 Nicotine dependence, other tobacco product, uncomplicated
CPT/HCPCS: 96372; 99283; J1885

== ENCOUNTER 2023-05-28 00:05 | Emergency (ER) | payer OTHER, SELFPAY | END 2023-05-28 02:39 | disposition home or self-care (01) | LOC: ERS 00:05 | DX: T78.40XA Allergy, unspecified, initial encounter (principal); F17.290 Nicotine dependence, other tobacco product, uncomplicated; F17.200 Nicotine dependence, unspecified, uncomplicated | CPT/HCPCS: 99283 ==

== ENCOUNTER 2023-10-14 15:38 | Emergency (ER) | payer OTHER ==
[2023-10-14 16:40] LABS: #Basophils 0.04 10x3/uL (0.0-0.2); %Basophils 1.1 % (0.0-1.0); %Eosinophils 7.7 % (0.0-10.0); %Lymphocytes 40.9 % (21.0-51.0); %Monocytes 12.2 % (0.0-10.0); %Neutrophils 37.5 % (42.0-75.0); Hematocrit 35.2 % (36.0-47.0); Hemoglobin 10.9 g/dL (12.0-16.0); Mean Corpuscular Hemoglobin 21.4 pg (27.0-31.0); Mean Platelet Volume 11.2 fL (7.4-10.4); Platelet Count 230 10x3/uL (130-400); RBC Distribution Width 18.8 % (11.5-14.5)
[2023-10-14 16:55] LABS: Hypochromia SLIGHT = 6-15 cells HPF (0-5); Microcytosis SLIGHT = 6-15 cells HPF (0-5); Ovalocytes SLIGHT = 2-5 cells HPF (0-1); Platelet Adequacy Comment Platelets Normal; Polychromasia SLIGHT = 2-3 cells HPF (0-2); Target Cells SLIGHT = 2-5 cells HPF (0-1); Tear Drops SLIGHT = 2-5 cells HPF (0-1)
[2023-10-14 17:24] LABS: Troponin I Less than 0.010 ng/mL (< 0.028)
[2023-10-14 18:43] LABS: Lipase 23 U/L (8-78)
[2023-10-14 18:45] LABS: ALT (SGPT) 14 U/L (8-55); AST (SGOT) 39 U/L (5-34); Acetaminophen Less than 10 mcg/mL (10.0-30.0); Albumin 3.2 g/dL (3.5-5.0); Alcohol Less than 10.0 mg/dL (Less than 10); Alkaline Phosphatase 79 U/L (40-110); Anion Gap 13 mmol/L (10-20); BUN (Urea Nitrogen) 11 mg/dL (9.8-20.1); Bilirubin, Total 0.4 mg/dL (0.2-1.2); Calc. Creatinine Clearance 0 mL/min (70-130); Calcium 8.8 mg/dL (7.8-10.44); Carbon Dioxide 22 mmol/L (22-29); Chloride 110 mmol/L (98-107); Estimated GFR 82; Globulin 3.7 g/dL (2.4-3.5); Glucose 75 mg/dL (70-105); Potassium 3.6 mmol/L (3.5-5.1); Protein, Total 6.9 g/dL (6.0-8.3); Salicylate Less than 8.0 mg/dL (15.0-30.0); Sodium 141 mmol/L (136-145)
[2023-10-14] MEDS ORDERED: levETIRAcetam 500 MG (5 mL) VIAL ONE (19:16)
== END 2023-10-14 20:21 | disposition home or self-care (01) ==
LOC: ERS 15:38
DX: S06.9X9A Unspecified intracranial injury with loss of consciousness of unspecified duration, initial encounter (principal); S00.83XA Contusion of other part of head, initial encounter; S30.0XXA Contusion of lower back and pelvis, initial encounter; F17.210 Nicotine dependence, cigarettes, uncomplicated; G62.9 Polyneuropathy, unspecified; J44.9 Chronic obstructive pulmonary disease, unspecified; W07.XXXA Fall from chair, initial encounter; Y93.89 Activity, other specified; Z79.899 Other long term (current) drug therapy
CPT/HCPCS: 36415; 70450; 71250; 72125; 74177; 80053; 80307; 83690; 84484; 85025; 93005; 96374; 96375; J1953

== ENCOUNTER 2025-01-10 16:22 | Emergency (ER) | payer OTHER ==
[2025-01-10] MEDS ORDERED: Ondansetron PF 4 MG/2 ML Vial ONE (17:09)
== END 2025-01-10 18:04 ==
LOC: ERS 16:22
DX: T63.441A Toxic effect of venom of bees, accidental (unintentional), initial encounter (principal); J44.89 Other specified chronic obstructive pulmonary disease; K21.9 Gastro-esophageal reflux disease without esophagitis; R44.3 Hallucinations, unspecified; M54.30 Sciatica, unspecified side; G43.909 Migraine, unspecified, not intractable, without status migrainosus; D64.9 Anemia, unspecified; G25.81 Restless legs syndrome; G62.9 Polyneuropathy, unspecified; Z87.891 Personal history of nicotine dependence
CPT/HCPCS: 96374